=== PATIENT | male | born 1990 | race Two or more races ===

== ENCOUNTER 2017-10-03 10:27 | Emergency (ER) | payer SELFPAY ==
[2017-10-03] MEDS: HYDROcodone/APAP 5/325MG 1 TAB TABLET PO (10:55)
[2017-10-03] MEDS: NAPROXEN 500 MG TABLET PO (10:56)
== END 2017-10-03 11:55 | disposition home or self-care (01) ==
LOC: ER 10:27
DX: S62.606A Fracture of unspecified phalanx of right little finger, initial encounter for closed fracture (principal); W20.8XXA Other cause of strike by thrown, projected or falling object, initial encounter; Y93.89 Activity, other specified; Y92.89 Other specified places as the place of occurrence of the external cause; Y99.8 Other external cause status
CPT/HCPCS: 73140; 99284